=== PATIENT | male | born 1990 | race Caucasian/White ===

== ENCOUNTER → 2020-08-15 | Outpatient (CLI) | payer OTHER ==
[~2020-08-15] MED LIST: ANTIVERT/2525 M1 PO; AUGMENTIN 875 M1 TA1 PO; AUGMENTIN 875875 MG PO; MOTRIN800 MG PO; PREDNISONE20 M1 PO; ROBAXIN-750750 MG PO; VICODIN 5/500 505 MG PO
== END | disposition home or self-care (01) ==
LOC: COVID19 01:39
PROVIDERS: ATTEND Physician Assistant
DX: Z20.828 Contact with and (suspected) exposure to other viral communicable diseases (principal)